=== PATIENT | female | born 1980 | race African-American/Black ===

== ENCOUNTER 2016-10-18 09:06 | Emergency (ER) | payer OTHER ==
[~2016-10-18] VITALS: Ht 170.2 cm; Wt 78.5 kg
--- NOTE | ~2016-10-18 | EKG ---
[address] [address] ELECTROCARDIOGRAM REPORT Name: GEOVANNY DELGADO Room #: DEP DIMITRIS Parks#: [id number] Admission: 10/18/16 Attend Phys: Discharge: 10/18/16 Date of : 76 Report #: [id number] THIS REPORT FOR: //name// [facility] ED Test Date: 2016-10-18 Test Time: 09:14:59 Pat Name: GEOVANNY DELGADO Department: Room: Gender: F [employer]: ERIC : 1980 Requested By: Ivette Mackenzie Order Number: [id number] MD: Vu Vazquez Measurements Intervals [place] Rate: 94 P: 46 W[place]: 132 QRS: 15 QRSD: 87 T: 13 QT: 339 QTc: 424 Interpretive Statements Sinus rhythm No previous ECG available for comparison Electronically Signed On 10-18-2016 16:28:23 CDT by Vu Vazquez [email or web address] <ELECTRONICALLY SIGNED> By: Vu Vazquez MD 10/18/16 1628 0914 3 Vu Vazquez MD /EPI
[2016-10-18 09:31] LABS: POC CA IONIZED 4.5 mg/dL (4.5-5.3); POC CREATININE 0.8 mg/dL (0.6-1.3); POC HEMOGLOBIN 14.3 g/dL (12.0-15.0); POC POTASSIUM 3.4 mmol/L (3.5-5.1)
[2016-10-18 09:33] LABS: ABSOLUTE NEUTROPHILS 4.4 thou/uL (1.4-8.2); BASOPHILS 0.4 % (0.0-2.0); EOSINOPHILS 0.7 % (0.0-3.0); HEMATOCRIT 37.7 % (37.0-47.0); HEMOGLOBIN 12.5 gm/dL (12.0-15.0); LYMPHOCYTES 30.6 % (24.0-44.0); MCHC 33.3 g/dL (28.0-37.0); MCV 84.1 fL (80.0-100.0); MONOCYTES 9.9 % (1.0-8.0); PLATELET COUNT 208 thou/uL (150-400); POLYS 58.4 % (36.0-66.0); RBC 4.48 mil/uL (4.20-5.00); RDW 14.2 % (10.5-14.5); WBC 7.5 thou/uL (4.0-11.0)
[2016-10-18 09:37] LABS: MANUAL DIFF NO
[2016-10-18 09:40] LABS: ANION GAP 7 mmol/L (7-16); BUN 10 mg/dL (7-18); CHLORIDE 102 mmol/L (98-107); CO2 29 mmol/L (21-32); CREATININE 0.8 mg/dL (0.6-1.0); GLUCOSE 100 mg/dL (74-106); POTASSIUM 3.5 mmol/L (3.5-5.1); SODIUM 138 mmol/L (136-145)
[2016-10-18 09:47] LABS: ALBUMIN 4.2 g/dL (3.4-5.0); ALKALINE PHOSPHATASE 90 U/L (46-116); SGOT 17 U/L (15-37); SGPT 29 U/L (30-65); TOTAL BILIRUBIN 0.3 mg/dL (<0.1-1.0); TOTAL PROTEIN 7.9 g/dL (6.4-8.2); TROPONIN-I < 0.04 ng/mL (<0.04-0.07)
[2016-10-18] MEDS ORDERED: CAMILA0.35 MG PO (09:48)
[2016-10-18 10:01] LABS: URINE BILIRUBIN NEGATIVE (Negative); URINE BLOOD TRACE (Negative); URINE COLOR YELLOW; URINE GLUCOSE-RANDOM* NEGATIVE (Negative); URINE KETONES NEGATIVE (Negative); URINE NITRITE NEGATIVE (Negative); URINE PROTEIN (DIPSTICK) TRACE (Negative); URINE UROBILINOGEN 0.2 E.U./dl (0.2-1.0)
[2016-10-18 10:21] LABS: CASTS None Seen /LPF (None Seen); CRYSTALS None Seen /LPF (None Seen); SQUAMOUS >10 Many /LPF (0-3); URINE WBC >25 Many /HPF (0-5)
[2016-10-18 10:22] LABS: URINE RBC 3-10 Few /HPF (0-2)
[2016-10-18 11:00] VITALS: BP 123/71
== END 2016-10-18 10:52 | disposition home or self-care (01) ==
LOC: ER 09:06
PROVIDERS: Physician Assistant
DX: R20.2 Paresthesia of skin (principal); R53.1 Weakness; F10.99 Alcohol use, unspecified with unspecified alcohol-induced disorder; Z71.1 Person with feared health complaint in whom no diagnosis is made